=== PATIENT | female | born 1950 | race Caucasian/White ===

== ENCOUNTER 2020-05-29 13:58 | Observation (INO) | payer MEDICARE, BC ==
[~2020-05-29] VITALS: Ht 154.9 cm; Wt 81.8 kg
[2020-05-29] MEDS ORDERED: SYNTHROID25 MCG PO (15:02)
[2020-05-29] MEDS ORDERED: NEURONTIN 300300 MG PO (15:02)
[2020-05-29] MEDS ORDERED: LAMICTAL25 MG PO (15:02)
[2020-05-29] MEDS ORDERED: GLUCOPHAGE1000 MG PO (15:03)
[2020-05-29] MEDS ORDERED: NORVASC5 MG PO (15:04)
[2020-05-29] MEDS ORDERED: TOPROL XL100 MG PO (15:04)
[2020-05-29] MEDS ORDERED: CYMBALTA60 MG PO (15:04)
[2020-05-29] MEDS ORDERED: CRESTOR5 MG PO (15:04)
[2020-05-29] MEDS ORDERED: ACCUPRIL20 MG PO (15:05)
[2020-05-29] MEDS ORDERED: BENTYL 20 MG TA20 MG PO (15:06)
[2020-05-29] MEDS ORDERED: ZOFRAN4 MG PO (15:06)
[2020-05-29] MEDS ORDERED: IMITREX100 MG PO (15:07)
[2020-05-29] MEDS ORDERED: PATADAY2.5 ML EACH EYE (15:07)
[2020-05-29] MEDS ORDERED: MYRBETRIQ25 MG PO (15:09)
[2020-05-29 15:18] VITALS: BP 109/56
[2020-05-29 16:21] LABS: BASOPHILS 0.2 % (0-2); EOSINOPHILS 2.8 % (0-7); HEMATOCRIT 38.4 % (36.0-48.0); HEMOGLOBIN 12.9 g/dL (12-16); IMMATURE GRANULOCYTES 0.4 % (0-5); LYMPHOCYTES 7.2 % (15-50); MCH 29.1 pg (26.0-34.0); MCHC 33.6 g/dL (31.0-37.0); MCV 86.7 fL (80.0-100.0); MEAN PLATELET VOLUME 10.4 fL (7.4-10.4); MONOCYTES 6.7 % (2-11); NEUTROPHILS 82.7 % (40-80); PLATELET COUNT 268 10x3/uL (130-400); RBC 4.43 10x6/uL (4.00-5.40); RDW 13.3 % (11.5-14.5); WBC 12.7 10x3/uL (4.8-10.8)
[2020-05-29 16:36] LABS: UDS - AMPHET NEGATIVE QUAL (NEGATIVE); UDS - BARB NEGATIVE QUAL (NEGATIVE); UDS - BENZO NEGATIVE QUAL (NEGATIVE); UDS - COCAINE NEGATIVE QUAL (NEGATIVE); UDS - OPIATE NEGATIVE QUAL (NEGATIVE); UDS - PCP NEGATIVE QUAL (NEGATIVE); UDS - THC NEGATIVE QUAL (NEGATIVE)
[2020-05-29 16:38] LABS: CALC OSMOLALITY 258 mosm/kg (275-300); CALCIUM 8.8 mg/dL (8.5-10.1); CARBON DIOXIDE 27.3 mmol/L (21.0-32.0); CHLORIDE - SERUM 90 mmol/L (98-107); CREATININE - SERUM 0.8 mg/dL (0.6-1.3); GLUCOSE 157 mg/dL (74-106); POTASSIUM - SERUM 4.4 mmol/L (3.5-5.1); SODIUM 128 mmol/L (136-145); UREA NITROGEN 11 mg/dL (7-18); eGFR NON AFRICAN AMERICAN 75 mL/min (90-120)
[2020-05-29 16:54] LABS: ALBUMIN 4.2 g/dL (3.4-5.0); ALKALINE PHOSPHATASE 111 U/L (30-120); ALT (SGPT) 33 U/L (10-68); BILIRUBIN NEGATIVE (NEGATIVE); BILIRUBIN - TOTAL 0.68 mg/dL (0.2-1.3); CKMB 1.3 U/L (0.0-3.6); CREATINE KINASE 96 UL (21-215); GLUCOSE NEGATIVE (NEGATIVE); KETONE MODERATE mg/dL (NEGATIVE); MAGNESIUM - SERUM 1.8 mg/dL (1.8-2.4); NITRITE NEGATIVE (NEGATIVE); PROTEIN - SERUM 7.4 g/dL (6.4-8.2); THYROID STIMULATING HORMONE 3.22 uIU/mL (0.36-3.74); UROBILINOGEN NORMAL (NORMAL)
[2020-05-29 16:56] LABS: INR 0.85 (0.85-1.17); PROTIME 11.6 SECONDS (11.6-15.0)
[2020-05-29 16:58] LABS: TROPONIN-I < 0.017 ng/mL (0.000-0.060)
[2020-05-29 17:01] LABS: APTT 21.9 SECONDS (22.8-39.4)
[2020-05-29 17:33] VITALS: BP 197/92
[2020-05-29 17:54] VITALS: BP 188/74
--- NOTE | 2020-05-29 18:46 | NUR ---
FSBS 135
[2020-05-29 19:31] VITALS: BP 164/57
--- NOTE | 2020-05-29 23:28 | NUR ---
RECEIVED PATIENT TO ROOM 210 VIA STRETCHER. PATIENT SELF AMBULATED TO BATHROOM THEN TO BED. PATIENT ASKED FOR IV FLUID IMMEDIATELY BC HER MOUTH IS DRY. OFFERED PATIENT ICE WATER UNTIL THIS NURSE GATHERS HER MEDS AND SETS UP HER IV, TRAN STATES, "NO, THE IV FLUIDS WILL BE FINE, PLEASE HURRY". QUICK START, MED REC, ADULT HX, FPOC, SRS ALL COMPLETED. PATIENT STATES, "I'LL KEEP YOU BUSY". INSTRUCTED PATIENT TO USE HER CALL LIGHT WHEN SHE NEEDS ASSISTANCE. NO S/S OF DISTRESS OBSERVED, RR EVEN AND UNLABORED ON ROOM AIR. PATIENT IS AAOX4, UP AD SINA. DENIES PAIN OR NEEDS AT THIS TIME. CL IN REACH, BED LOCKED AND LOWERED. WILL CTM.
[2020-05-30 03:32] VITALS: BP 142/54; Ht 154.9 cm; Wt 81.8 kg
[2020-05-30 05:08] LABS: HEMATOCRIT 37.9 % (36.0-48.0); HEMOGLOBIN 12.4 g/dL (12-16); LYMPHOCYTES 9.4 % (15-50); MCH 28.4 pg (26.0-34.0); MCHC 32.7 g/dL (31.0-37.0); MCV 86.7 fL (80.0-100.0); NEUTROPHILS 74.1 % (40-80); PLATELET COUNT 315 10x3/uL (130-400); RBC 4.37 10x6/uL (4.00-5.40); RDW 12.8 % (11.5-14.5); WBC 9.8 10x3/uL (4.8-10.8)
[2020-05-30 05:35] LABS: ALBUMIN 3.8 g/dL (3.4-5.0); ALKALINE PHOSPHATASE 98 U/L (30-120); ALT (SGPT) 29 U/L (10-68); BILIRUBIN - TOTAL 0.31 mg/dL (0.2-1.3); CALC OSMOLALITY 269 mosm/kg (275-300); CARBON DIOXIDE 27.7 mmol/L (21.0-32.0); CHLORIDE - SERUM 99 mmol/L (98-107); CREATININE - SERUM 0.7 mg/dL (0.6-1.3); GLUCOSE 143 mg/dL (74-106); PHOSPHOROUS 3.8 mg/dL (2.5-4.9); POTASSIUM - SERUM 4.3 mmol/L (3.5-5.1); PROTEIN - SERUM 6.7 g/dL (6.4-8.2); SODIUM 135 mmol/L (136-145); eGFR NON AFRICAN AMERICAN 88 mL/min (90-120)
[2020-05-30 05:44] LABS: UREA NITROGEN 8 mg/dL (7-18)
--- NOTE | 2020-05-30 07:30 | NUR ---
PT SITTING UP IN BED, RR EVEN AND UNLABORED. PT C/O NOT GETTING ENOUGH WATER. PT HAS HALF FULL CUP OF WATER ON TABLE. WATER RECIEVED PER REQUEST. PT ASKED IF I COULD HAND HER HER PURSE SO SHE COULD TAKE HER MEDICATIONS. WAS EDUCATED THAT WE GIVE HER MEDICATIONS WHILE SHE IS IN THE HOSPITAL, RELUCTANTLY VERBALZIED UNDERSTANDING. 0900- ATTEMPTED TO GIVE MORNING MEDICATIONS TO PT AND SHE STATED SHE HAD ALREADY TAKEN HER MEDICATION FROM HER PURSE (STATES ONLY TOOK NEURONTIN). PT HAD AN ISSUE WITH ALMOST EVERY MEDICATION, ASKED WITH EACH ONE IF THE DR. RECOMMENDED THEM. EXPLAINED THAT THE DR. IS THE ONE WHO PUT THE ORDERS IN. RELUCTANTLY AGREED. PT IS VERY HARD TO PLEASE AND CONDESCENDING IN HER TONE OF VOICE. EDUCATION PROVIDED ON EACH MEDICATION. PT REFUSED SOME STATING THAT SHE DID NOT WANT TO TAKE THEM OR TOOK THEM AT NIGHT. EMAR REFLECTS THIS. WILL CONTINUE TO MONITOR.
[2020-05-30 08:00] VITALS: BP 153/69
[2020-05-30 11:00] VITALS: BP 156/75
--- NOTE | 2020-05-30 13:31 | NUR ---
D/C INSTRUCTIONS REVIEWED WITH PT, VERBALIZED UNDERSTANDING. IV D/C WITH CATHETER TIP INTACT. LEFT VIA WHEELCHAIR WITH ALL BELONGINGS.
== END 2020-05-30 13:36 | disposition home or self-care (01) ==
LOC: D.ER 13:58 → D.M2 22:20 → OBSVTIME 23:00 → D.M2 05-30 13:36
PROVIDERS: Family Medicine; ADMIT Family Medicine; ATTEND Family Medicine
DX: E87.1 Hypo-osmolality and hyponatremia (principal); E11.9 Type 2 diabetes mellitus without complications; I10 Essential (primary) hypertension; E78.5 Hyperlipidemia, unspecified; E03.9 Hypothyroidism, unspecified; K58.9 Irritable bowel syndrome, unspecified; F31.9 Bipolar disorder, unspecified; K76.0 Fatty (change of) liver, not elsewhere classified; K21.9 Gastro-esophageal reflux disease without esophagitis